=== PATIENT | female | born 2000 | race Caucasian/White ===

== ENCOUNTER 2021-02-21 00:54 | Emergency (ER) | payer OTHER, MEDICAID ==
[~2021-02-21] VITALS: Ht 177.8 cm; Wt 56.7 kg
[2021-02-21 02:17] VITALS: BP 118/72
== END 2021-02-21 02:17 | disposition home or self-care (01) ==
LOC: M.ERS 00:54
DX: T63.301A Toxic effect of unspecified spider venom, accidental (unintentional), initial encounter (principal); Y92.89 Other specified places as the place of occurrence of the external cause